=== PATIENT | male | born 1990 | race African-American/Black ===

== ENCOUNTER 2016-06-10 16:34 | Emergency (ER) | payer OTHER ==
[~2016-06-10] VITALS: Ht 172.7 cm; Wt 77.6 kg
[2016-06-10] MEDS ORDERED: DOXY100C37 PO (17:43)
[2016-06-10] MEDS ORDERED: AZITHROMYCIN 250 MG TAB PO ONE (17:45)
[2016-06-10] MEDS ORDERED: cefTRIAXone SOD 250 MG VIAL (J0696) IM ONE (17:45)
[2016-06-10 18:13] VITALS: BP 138/86
== END 2016-06-10 18:18 | disposition home or self-care (01) ==
LOC: M ED 17:57
DX: R30.0 Dysuria (principal)
CPT/HCPCS: 81001; 87086; 87491; 87591; 96372; 99282; J0696

== ENCOUNTER 2016-06-25 07:38 | Emergency (ER) | payer OTHER ==
[~2016-06-25] VITALS: Ht 172.7 cm; Wt 79.8 kg
[~2016-06-25 07:38] MED LIST: DOXY100C37 PO
[2016-06-25 07:45] VITALS: BP 144/71
== END 2016-06-25 08:26 | disposition home or self-care (01) ==
LOC: M ED 08:11
DX: A74.9 Chlamydial infection, unspecified (principal); Z51.89 Encounter for other specified aftercare